=== PATIENT | female | born 1965 | race Caucasian/White ===

== ENCOUNTER 2025-08-15 14:19 | Outpatient (CLI) | payer MEDICAID ==
[~2025-08-15] VITALS: Ht 156.2 cm; Wt 93.0 kg
[2025-08-15 14:52] LABS: TOTAL HEMOGLOBIN 15.1 G/dl (12.0-16.0)
[2025-08-15 15:29] VITALS: PULSE 70; RESP 15; O2SAT 95
[2025-08-15] MEDS: albuterol 2.5 MG/3 ML nebule NEB ONE (15:34)
[2025-08-15 15:41] VITALS: PULSE 66; RESP 16
--- NOTE | 2025-08-16 15:15 | PROCEDURE NOTE - Respiratory ---
Procedure Note-Respiratory Providers to Copies To 1: YOLETTE COLE MD Procedure Name: This is a complete pulmonary function study dated August 15, 2025. Hemoglobin measurement was done as part of the study. Spirometry measurements: Both the forced vital capacity and the FEV1 are normal. The FEV1 ratio is normal. The flow rate measurements are normal. After inhaled bronchodilator was administered the FEV1 and some of the flow rates show some improvement. Lung volume measurements: The total lung capacity and the functional residual capacity are both normal. There is slight elevation of the residual volume measurement. This indicates a slight tendency for air trapping within the lungs. Lung diffusion measurement: The DLCO measurement is normal. Both the KVO and the alveolar volume measurements are normal. It is noted that the hemoglobin measurement is normal. Airway resistance measurement: The airway resistance measurement is normal. Overall conclusion: Normal pulmonary function study. Even though this patient has smoked cigarettes for many years, the pulmonary function remains in the normal range. The bronchodilator medications that this patient uses on a re gular basis may be boosting this patient's pulmonary capacity. It is recommended that the patient continue to use bronchodilator medication. This patient should completely abstain from cigarette smoking to preserve lung function. We have no previous studies for comparison. YOLETTE COLE MD Aug 16, 2025 15:15
== END 2025-08-15 23:59 | disposition home or self-care (01) ==
LOC: RT 14:19
PROVIDERS: ATTEND Internal Medicine Pulmonary Disease
DX: J44.9 Chronic obstructive pulmonary disease, unspecified (principal)
CPT/HCPCS: 85018; 94060; 94727; 94729; 94760